=== PATIENT | male | born 1960 | race Caucasian/White ===

== ENCOUNTER 2022-07-02 11:06 | Emergency (ER) | payer SELFPAY ==
[~2022-07-02] VITALS: Ht 165.1 cm; Wt 77.0 kg
[2022-07-02] MEDS ORDERED: ACETAMINOPHEN 325MG TABLET PO ONE (13:30)
[2022-07-02] MEDS ORDERED: TOPUD MT (15:46)
[2022-07-02] MEDS ORDERED: IBUP-1523 MT (15:46)
[2022-07-02 16:25] VITALS: BP 136/86
== END 2022-07-02 16:24 | disposition home or self-care (01) ==
LOC: ER 11:06
DX: S80.812A Abrasion, left lower leg, initial encounter (principal); E11.9 Type 2 diabetes mellitus without complications; I10 Essential (primary) hypertension; W18.39XA Other fall on same level, initial encounter; Y93.89 Activity, other specified; Y92.89 Other specified places as the place of occurrence of the external cause; Y99.8 Other external cause status
CPT/HCPCS: 73560; 73590; 73610; 73630; 82962; 99284